=== PATIENT | male | born 1955 | race Caucasian/White ===

== ENCOUNTER 2016-09-14 08:03 | Inpatient (IN) | payer BC ==
[2016-08-25 11:25] VITALS: BMI 34.0
--- NOTE | 2016-08-25 11:59 | PAT Medication Instructions ---
Service Date Aug 25, 2016. Current Home Medication List Lisinopril (Zestril), 5 MG PO QAM Misc Natural Products (Osteo Bi-Flex Advanced Do), 2 TAB PO QPM Naproxen (Aleve), 220 MG PO PRN Medication Instructions For Your Scheduled Surgery - Hold the following medications 5 days prior to surgery: Misc Natural Products (Osteo Bi-Flex Advanced Do), 2 TAB PO QPM - Hold the following medications the morning of surgery: Lisinopril (Zestril), 5 MG PO QAM Naproxen (Aleve), 220 MG PO PRN (per surgeon instructions) If you have any questions please call us at [phone] or [phone] ( [place]) or [phone]
[2016-08-25 12:39] LABS: BASO % 0.4 %; BASO ABS # 0.03 K/uL (0-0.2); COMPLETE YES; IG% 0.2 %; LYMPH % 22.5 %; LYMPH ABS # 1.82 K/uL (1.2-3.4); MEAN CORPUSCULAR HEMOGLOBIN 29.8 pg (25-34); MEAN CORPUSCULAR HGB CONC 33.5 g/dl (32-36); MEAN PLATELET VOLUME 9.8 fL (7.4-10.4); MONO % 9.7 %; NEUT % 64.2 %; PLATELET COUNT 206 K/uL (130-400); RED BLOOD COUNT 5.17 M/uL (4.7-6.1); WHITE BLOOD COUNT 8.08 K/uL (4.8-10.8)
[2016-08-25 12:56] LABS: PARTIAL THROMBOPLASTIN RATIO 1.1; PROTHROMBIN TIME (PATIENT) 11.1 SECONDS (9.0-12.0)
[2016-08-25 13:17] LABS: URINE APPEARANCE CLEAR (CLEAR); URINE BILIRUBIN NEG (NEG); URINE COLOR YELLOW; URINE NITRITE NEG (NEG); URINE SPECIFIC GRAVITY 1.012 (1.000-1.030); UROBILINOGEN NEG (NEG)
[2016-08-25 13:27] LABS: MANUAL MICROSCOPIC REQUIRED? NO; REVIEW REQ? NO
[2016-08-25 13:34] LABS: ESTIMATED AVERAGE GLUCOSE 128 mg/dl; HA1C FLAG Normal (Normal)
[2016-08-25 15:56] LABS: POTASSIUM 4.2 mmol/L (3.5-5.1)
[2016-08-25 16:03] LABS: CALCIUM 9.2 mg/dl (8.5-10.1)
--- NOTE | 2016-08-28 08:07 | DIAGNOSTIC IMAGING REPORT ---
TWO VIEW CHEST CLINICAL HISTORY: Preoperative examination. FINDINGS: PA and lateral chest radiographs are obtained. No prior studies are available for comparison at the time of dictation. The cardiomediastinal silhouette is unremarkable. Scattered calcified granulomas are observed. The lungs and pleural spaces are otherwise clear. There is no pneumothorax. The bony thorax appears intact. Degenerative change is noted throughout the thoracic spine. IMPRESSION: No active disease in in the chest. Electronically signed by: Marques Buckley M.D. 08/28/2016 8:06 AM
--- NOTE | 2016-09-13 16:00 | HISTORY & PHYSICAL EXAMINATION ---
DATE OF ADMISSION: 09/14/2016 CHIEF COMPLAINT: Left knee pain. HISTORY OF PRESENT ILLNESS: The patient is a 61-year-old gentleman with known osteoarthritis about his bilateral knees, left worse than right. He is a truck technician by trade. He has had previous corticosteroid as well as viscosupplementation injections. He continues to have ongoing pain and disability and now desires to proceed with left total knee arthroplasty. PAST MEDICAL HISTORY: Hypertension, obesity, osteoarthritis. PAST SURGICAL HISTORY: None. MEDICATIONS: Lisinopril/HCTZ 10/12.5 half tablet daily. ALLERGIES: No known drug allergies. SOCIAL HISTORY AND REVIEW OF SYSTEMS: Noncontributory. PHYSICAL EXAMINATION: GENERAL: Well-nourished, well-developed, obese male who appears his stated age. HEAD, EYES, EARS, NOSE, AND THROAT: Normocephalic, atraumatic, extraocular movements intact, oropharynx pink and moist. NECK: Supple without adenopathy. LUNGS: Clear to auscultation bilaterally. HEART: Regular rate and rhythm. ABDOMEN: Soft, nontender, nondistended. EXTREMITIES: The upper extremity within normal limits. The left knee has a varus alignment. He complains primarily of medial compartment pain. He has mild crepitus with range of motion. His range of motion is from 0-120 degrees. X-RAYS: X-rays were reviewed. He has a varus aligned knee. He has bone on bone arthritis of the medial compartment with complete loss of joint space. There is moderate osteophyte formation about the medial joint line. He has moderate degenerative change about the patellofemoral joint as well. ASSESSMENT: Left knee degenerative joint disease. PLAN: Risks versus benefits were discussed. Consent was obtained. The patient's primary care physician is Dr. Aleida Maier from [facility]. Will proceed with left total knee arthroplasty upon preoperative workup and medical clearance.
[~2016-09-14] VITALS: Ht 185.4 cm; Wt 117.3 kg
[2016-09-14] VITALS (7 sets, daily range): BP systolic 115–141; BP diastolic 73–91; PULSE 62–85; TEMP 36.3–36.7; O2SAT 93–97; Ht 185.4 cm; Wt 117.3 kg
[~2016-09-14 08:03] MED LIST: ACETAMINOPHEN 500 MG TAB PO SCH; BUPIVACAINE 0.25% 30 ML VIAL ONE; BUPIVACAINE 0.5 % 5 MG/1 ML PF 10ML VIAL ONE; CEFAZOLIN 2000 MG/60 ML D5W 60 ML IV SCH; CeleBREX 200 MG CAP PO SCH; DEXAMETHASONE 4 MG TAB PO SCH; FAMOTIDINE 20 MG TAB PO SCH; GABAPENTIN 300 MG CAP PO SCH; LACTATED RINGER'S 1000ML 1,000 ML IV SCH; LACTATED RINGER'S 1000ML 500 ML IV ONE; LISI-729 PO; METOCLOPRAMIDE HCL 10 MG TAB PO SCH; MISCTAB78 PO; NAPR1TAB9 PO; ROPIVACAINE 5MG/ML 30 ML 150 MG, BUPIVACAINE/EPINEPHR 0.5% MPF 30 ML, KETOROLAC TROMETH... INFIL SCH
[2016-09-14] MEDS ORDERED: MIDAZOLAM HCL 1 MG/ML 2ML VIAL ONE ×3 (08:34→10:27)
[2016-09-14] MEDS ORDERED: LIDOCAINE HCL 2% 2 ML VIAL (20MG/ML) ONE (08:34)
[2016-09-14] MEDS ORDERED: FENTANYL CITRATE INJ 50 MCG/1 ML 2 ML VIAL ONE (08:34)
[2016-09-14] MEDS ORDERED: PROPOFOL IV EMULSION 10 MG/ML 20 ML VIAL IV ONE (08:34)
--- NOTE | 2016-09-14 08:46 | History & Physical Bridge Note ---
H&P Re-Evaluation Bridge Note: I have examined the patient, reviewed the History & Physical and in the interval since the performance of the History & Physical I have noted the following changes of clinical significance: No changes noted
[2016-09-14] MEDS ORDERED: ORTHO JOINT ANESTHETIC ONE (09:13)
[2016-09-14] MEDS: TRANEXAMIC ACID INJ 1,000 MG in SODIUM CHLORIDE 0.9% 100ML 100 ML IV SCH ×2 (09:32→14:15)
[2016-09-14] MEDS ORDERED: LACTATED RINGER'S 1000ML 1,000 ML IV PRN (09:50)
[2016-09-14] MEDS ORDERED: ONDANSETRON INJ 2 MG/ML 2 ML VIAL IV PRN ×2 (10:00→11:30)
[2016-09-14] MEDS ORDERED: FENTANYL CITRATE INJ 50 MCG/1 ML 2 ML VIAL IV PRN (10:00)
[2016-09-14] MEDS ORDERED: BACITRACIN 50000 UNIT VIAL IR ONE (10:56)
[2016-09-14] MEDS ORDERED: POVIDONE-IODINE OP SOLN 30 ML BTL TOP ONE (10:56)
--- NOTE | 2016-09-14 10:57 | [facility] Post Operative Brief Note ---
Immediate Operative Summary Operative Date Sep 14, 2016. Pre-Operative Diagnosis Left knee degenerative joint disease Post-Operative Diagnosis Same as Pre-op Procedure(s) Performed Left Total Knee Arthroplasty Cemented Surgeon Dr. Regino Benz Evp Chief Exploration Officer Surgeon(s) Mckay Gamez PA-C Estimated Blood Loss 20 ml Findings severe OA Specimens A. Left knee bone and tissue Complication(s) None Disposition Recovery Room / PACU
--- NOTE | 2016-09-14 11:19 | OPERATIVE REPORT ---
DATE OF OPERATION: 09/14/2016 PREOPERATIVE DIAGNOSIS: Osteoarthritis left knee. POSTOPERATIVE DIAGNOSIS: Osteoarthritis left knee. PROCEDURE: Left total knee arthroplasty. SURGEON: Dr. Benz. CORN SHUCKER: Mckay Gamez PA-C. ANESTHESIA: Spinal. COMPLICATIONS: None. OPERATION AND FINDINGS: Following induction of spinal anesthesia, the patient's left leg was prepped and draped in the usual sterile manner. Limb was exsanguinated with an Esmarch bandage and tourniquet was inflated to 350 mmHg. A longitudinal incision was made anteriorly. Subcutaneous tissue was sharply dissected. Electrocautery was used for hemostasis. Prepatellar bursa was incised and median parapatellar incision was performed. Patella was everted and the knee was flexed. Fat pad was removed to aid in visualization and the anterior and posterior cruciate ligaments were removed. The medial face of the tibia was cleared of soft tissue first with a Bovie and a Hernandez elevator. This tissue was retracted posteriorly using a blunt Hohmann. A Chris retractor was used to expose the synovium above on the anterior aspect of the femur and this was removed down to bone. The PSI guide was placed on the distal femur and two pins were placed anteriorly and kept in position and two additional pins were placed distally and removed. The distal femoral cutting block was placed in position and the distal femoral cut was used in the +0 setting. Next, the cutting block was removed and the femoral size 6 block was placed in the distal end of the femur. Care was taken to ensure appropriate external rotation and feeler gauge was used to ensure no notching would occur. The femoral block was centered on the distal femur and in the medial and lateral direction and was fixed using two bone screws. The gold pins were then removed. The oscillating saw was used to create the bone cuts and the distal femoral cutting block was removed and the reciprocating saw was used to further trim the femoral cuts as well as a deep in the area for the trochlear groove. Next, posterior condyle remnants were removed. Following this, a meniscal clamp and knife were utilized to remove the anterior portion of both medial and lateral meniscus. The proximal tibia PSI guide was placed into position and the proximal tibial cutting guide was screwed into position. The extra medullary alignment guide was utilized to ensure appropriate alignment. The proximal tibia was cut and the proximal tibial cutting block was removed and this bone fragment was removed. The appropriate guide was used to perform the notch cut on the distal femur and a lamina ammonia refrigeration worker and a cochlear knife were utilized to finish both medial and lateral meniscectomies to remove any remnants of the posterior or anterior cruciate ligaments. Following this, the distal femoral component was impacted into position and blunt Pham was used to sublux the tibia anteriorly. The proximal tibia was sized and a size 5 tibial tray was chosen as the size to be used. This was put into position and appropriate external rotation and a double check with extramedullary alignment guide was performed. The canal for the tibial stem was prepared first with a 17 mm drill and then the punch and a mallet and the trial tibial poly was placed. A tibial poly 9 was chosen the size to be used. It was brought to extension and the patella was prepared with the patellar reamer. A patella size 39 component was chosen the size to be used. The trial component was placed and knee was taken through a full range of motion and there was found to be no lateral subluxation of the tibia. No lateral release was required. The trials were all removed. The final components were obtained and assembled. Cement was mixed. The knee was thoroughly irrigated and the ortho mix was injected about the knee joint. The final components were cemented into position. After thoroughly suctioning and drying the bone ends, all excess cement was removed. The knee was held in extension while the cement hardened. The wound was irrigated and closed over a Hemovac drain. #1 Vicryl was used to close the extensor mechanism. Subcutaneous tissues closed using 0 Dexon. Skin was closed with tisha. Sterile dressing of Adaptic, 4 x 4's, sterile Webril, and Ganga was applied. The patient tolerated the procedure well. Due to the complex nature of the procedure, the entire surgery was performed with the operational assistance of Mckay Gamez PA-C. The assistant clinical director, under direct supervision, was involved in the actual performance of all aspects of the surgical procedure including hemostasis, tissue retraction and incision, instrument management, patient positioning, and wound closure. I attest to the content of the Intraoperative Record and any orders documented therein. Any exceptio ns are noted below.
[2016-09-14] MEDS ORDERED: METOCLOPRAMIDE HCL INJ 5 MG/ML 2 ML VIAL IV PRN (11:30)
[2016-09-14] MEDS ORDERED: TAMSULOSIN HCL 0.4 MG CAP PO PRN (11:30)
[2016-09-14] MEDS ORDERED: MAGNESIUM HYDROXIDE SUSP 30 ML UDC PO PRN (11:30)
[2016-09-14] MEDS ORDERED: MoRPHine SULFATE 2 MG/ML CARP IV PRN (11:30)
[2016-09-14] MEDS ORDERED: ALUMINUM/MAGNESIUM/SIMETH (MAALOX MAX) 30 ML UDC PO PRN (11:30)
[2016-09-14] MEDS ORDERED: ZOLPIDEM TARTRATE 5 MG TAB PO PRN (11:30)
--- NOTE | 2016-09-14 12:01 | DIAGNOSTIC IMAGING REPORT ---
LEFT KNEE 2 VIEWS History: Left total knee arthroplasty. Degenerative arthritis. Postop. FINDINGS: The patient is status post a left total knee arthroplasty. The hardware is intact. No fracture or dislocation. Skin tisha and surgical drains are in place. IMPRESSION: Left total knee arthroplasty. No evidence for hardware complication. Electronically signed by: Logan Garcia M.D. 09/14/2016 11:59 AM
[2016-09-14] MEDS ORDERED: MoRPHine SULFATE 4 MG/ML 1 ML CARP\\VIAL IV PRN (13:45)
[2016-09-14] MEDS ORDERED: MoRPHine SULFATE 10 MG/ML CARP/VIAL IV PRN (13:45)
[2016-09-14] MEDS: D5W AND 1/2NSS + 20MEQ KCL 1,000 ML IV SCH ×2 (14:05→23:32)
[2016-09-14] MEDS: KETOROLAC TROMETHAMINE 30 MG/ML VIAL IV. SCH ×2 (14:09→20:21)
--- NOTE | 2016-09-14 14:31 | Anesthesiology Progress Note ---
Anesthesia Post Op Note Date & Time Sep 14, 2016 at 14:30 Vital Signs Pain Intensity: 0.0 Vital Signs Past 12 Hours Date Time Temp Pulse Resp B/P Pulse Ox O2 Delivery O2 Flow Rate FiO2 09/14/16 14:20 81 16 128/89 96 Nasal Cannula 2.0 09/14/16 13:50 62 18 141/91 97 Nasal Cannula 2.0 09/14/16 13:20 96 Nasal Cannula 2.0 09/14/16 13:20 36.6 71 16 118/73 96 Nasal Cannula 2.0 09/14/16 13:20 Nasal Cannula 2.0 09/14/16 13:05 68 10 09/14/16 13:05 68 10 96 09/14/16 13:04 71 24 09/14/16 13:01 77 18 95 09/14/16 13:01 73 18 09/14/16 13:00 36.9 85 19 125/76 97 Nasal Cannula 2 09/14/16 12:59 125/76 09/14/16 12:56 68 19 97 09/14/16 12:56 65 19 09/14/16 12:53 102/76 09/14/16 12:51 73 21 09/14/16 12:51 71 21 96 09/14/16 12:49 108/79 09/14/16 12:46 66 16 09/14/16 12:46 66 16 98 09/14/16 12:43 122/75 09/14/16 12:41 72 11 98 09/14/16 12:41 73 11 09/14/16 12:39 109/79 09/14/16 12:36 65 12 96 09/14/16 12:36 65 12 09/14/16 12:33 115/78 09/14/16 12:31 60 14 99 09/14/16 12:31 61 14 09/14/16 12:30 71 24 09/14/16 12:30 71 24 100 09/14/16 12:29 118/77 09/14/16 12:25 72 19 09/14/16 12:25 71 19 100 09/14/16 12:24 110/76 09/14/16 12:20 77 20 09/14/16 12:20 73 20 99 09/14/16 12:19 72 18 09/14/16 12:19 72 18 122/81 99 09/14/16 12:14 70 15 09/14/16 12:14 70 15 111/73 98 09/14/16 12:13 70 16 105/60 100 Mask 10 09/14/16 12:09 73 11 99 09/14/16 12:09 68 11 09/14/16 12:08 118/74 09/14/16 12:07 72 21 97 09/14/16 12:07 72 21 09/14/16 12:04 107/68 09/14/16 12:02 67 14 09/14/16 12:02 68 14 94 09/14/16 11:59 109/76 09/14/16 11:57 70 13 09/14/16 11:57 71 13 96 09/14/16 11:52 72 14 99 09/14/16 11:52 68 14 09/14/16 11:47 66 10 100 09/14/16 11:47 66 10 09/14/16 11:44 107/70 09/14/16 11:40 36.2 79 16 108/64 100 Mask 10 09/14/16 11:32 36.2 81 16 109/69 100 Mask 10 09/14/16 08:40 36.7 79 18 128/86 96 Room Air Notes Mental Status: alert / awake / arousable, participated in evaluation Pt Amnestic to Procedure: Yes Nausea / Vomiting: adequately controlled Pain: adequately controlled Airway Patency, RR, SpO2: stable & adequate BP & HR: stable & adequate Hydration State: stable & adequate Neuraxial Anesthesia: was administered, sensory block is resolving Anesthetic Complications: no major complications apparent
[2016-09-14] MEDS: FERROUS GLUCONATE 324 MG TAB PO SCH (18:22)
[2016-09-14] MEDS: CEFAZOLIN IV 2,000 MG in DEXTROSE 5% 50ML 50 ML IV SCH (18:22)
[2016-09-14] MEDS: OXYCODONE HCL IR 5 MG TAB (IMMEDIATE RELEASE) PO PRN (18:29)
[2016-09-14] MEDS: DOCUSATE SODIUM 100 MG CAP PO SCH (21:07)
[2016-09-14] MEDS: OXYCODONE HCL 10 MG TABCR (OXYCONTIN) PO SCH (21:07)
[2016-09-14] MEDS: ASPIRIN 81 MG ECTAB PO SCH (21:07)
[2016-09-14] MEDS: ACETAMINOPHEN 500 MG TAB PO SCH (22:00)
[2016-09-15] VITALS (7 sets, daily range): BP systolic 110–144; BP diastolic 65–81; PULSE 56–68; TEMP 36.4–36.8; O2SAT 94–96
[2016-09-15] MEDS: KETOROLAC TROMETHAMINE 30 MG/ML VIAL IV. SCH ×2 (01:43→08:52)
[2016-09-15] MEDS: CEFAZOLIN IV 2,000 MG in DEXTROSE 5% 50ML 50 ML IV SCH (01:43)
[2016-09-15] MEDS: ACETAMINOPHEN 500 MG TAB PO SCH ×3 (05:44→21:36)
[2016-09-15 06:44] LABS: HEMATOCRIT 34.9 % (42-52); MEAN CELL VOLUME 88.8 fL (80-100); MEAN CORPUSCULAR HEMOGLOBIN 30.5 pg (25-34); MEAN CORPUSCULAR HGB CONC 34.4 g/dl (32-36); MEAN PLATELET VOLUME 10.2 fL (7.4-10.4); PLATELET COUNT 199 K/uL (130-400); RED BLOOD COUNT 3.93 M/uL (4.7-6.1); WHITE BLOOD COUNT 17.05 K/uL (4.8-10.8)
[2016-09-15 07:25] LABS: BUN/CREATININE RATIO 22.5 (10-20); CALCIUM 8.3 mg/dl (8.5-10.1); POTASSIUM 4.3 mmol/L (3.5-5.1)
[2016-09-15] MEDS ORDERED: DEXAMETHASONE INJ 10 MG in SYRINGE 0 ML IV SCH (07:30)
--- NOTE | 2016-09-15 07:46 | Orthopedic Progress Note ---
Orthopedic Progress Note Date of Service Sep 15, 2016. Subjective Post OP Day: 1 Reports: feeling well Objective N/V intact, dressing C/D/I (Hemovac d/c'd), toes mobile Date Time Temp Pulse Resp B/P Pulse Ox O2 Delivery O2 Flow Rate FiO2 09/15/16 03:44 36.5 64 16 111/70 96 Room Air 09/15/16 00:12 36.8 68 16 110/65 94 Room Air 09/14/16 23:30 Room Air 09/14/16 20:48 36.7 85 20 130/77 93 Room Air 09/14/16 16:32 36.4 76 20 127/74 96 Nasal Cannula 2.0 09/14/16 15:20 36.3 81 20 115/74 97 Nasal Cannula 2.0 09/14/16 15:05 Nasal Cannula 2.0 09/14/16 14:20 81 16 128/89 96 Nasal Cannula 2.0 09/14/16 13:50 62 18 141/91 97 Nasal Cannula 2.0 09/14/16 13:20 96 Nasal Cannula 2.0 09/14/16 13:20 36.6 71 16 118/73 96 Nasal Cannula 2.0 09/14/16 13:20 Nasal Cannula 2.0 09/14/16 13:05 68 10 09/14/16 13:05 68 10 96 09/14/16 13:04 71 24 09/14/16 13:01 77 18 95 09/14/16 13:01 73 18 09/14/16 13:00 36.9 85 19 125/76 97 Nasal Cannula 2 09/14/16 12:59 125/76 09/14/16 12:56 68 19 97 09/14/16 12:56 65 19 09/14/16 12:53 102/76 09/14/16 12:51 73 21 09/14/16 12:51 71 21 96 09/14/16 12:49 108/79 09/14/16 12:46 66 16 09/14/16 12:46 66 16 98 09/14/16 12:43 122/75 09/14/16 12:41 72 11 98 09/14/16 12:41 73 11 09/14/16 12:39 109/79 09/14/16 12:36 65 12 96 09/14/16 12:36 65 12 09/14/16 12:33 115/78 09/14/16 12:31 60 14 99 09/14/16 12:31 61 14 09/14/16 12:30 71 24 09/14/16 12:30 71 24 100 09/14/16 12:29 118/77 09/14/16 12:25 72 19 09/14/16 12:25 71 19 100 09/14/16 12:24 110/76 09/14/16 12:20 77 20 09/14/16 12:20 73 20 99 09/14/16 12:19 72 18 09/14/16 12:19 72 18 122/81 99 09/14/16 12:14 70 15 09/14/16 12:14 70 15 111/73 98 09/14/16 12:13 70 16 105/60 100 Mask 10 09/14/16 12:09 73 11 99 09/14/16 12:09 68 11 09/14/16 12:08 118/74 09/14/16 12:07 72 21 97 09/14/16 12:07 72 21 09/14/16 12:04 107/68 09/14/16 12:02 67 14 09/14/16 12:02 68 14 94 09/14/16 11:59 109/76 09/14/16 11:57 70 13 09/14/16 11:57 71 13 96 09/14/16 11:52 72 14 99 09/14/16 11:52 68 14 09/14/16 11:47 66 10 100 09/14/16 11:47 66 10 09/14/16 11:44 107/70 09/14/16 11:40 36.2 79 16 108/64 100 Mask 10 09/14/16 11:32 36.2 81 16 109/69 100 Mask 10 09/14/16 08:40 36.7 79 18 128/86 96 Room Air Laboratory Results 24 Hours: Test 09/15/16 05:35 Hematocrit 34.9 % Hemoglobin 12.0 g/dL Assessment & Plan Assessment: 61 yo male stable POD #1 s/p left TKA Plan: 1. Med management 2. DVT prophylaxis- ASA, TEDs, SCDs 3. PT/OT 4. D/C planning- home w/ HH
[2016-09-15] MEDS: FERROUS GLUCONATE 324 MG TAB PO SCH ×3 (08:52→17:51)
[2016-09-15] MEDS: ASPIRIN 81 MG ECTAB PO SCH ×2 (08:52→20:56)
[2016-09-15] MEDS: MULTIVITAMIN TAB PO SCH (08:53)
[2016-09-15] MEDS: PANTOprazole SOD 40 MG TAB PO SCH (08:53)
[2016-09-15] MEDS: DOCUSATE SODIUM 100 MG CAP PO SCH ×2 (08:53→20:56)
[2016-09-15] MEDS: LISINOPRIL 5 MG TAB PO SCH (08:54)
[2016-09-15] MEDS: OXYCODONE HCL 10 MG TABCR (OXYCONTIN) PO SCH ×2 (09:02→20:55)
--- NOTE | 2016-09-15 09:04 | Anesthesiology Progress Note ---
Anesthesia Post Op Note Date & Time Sep 15, 2016 at 09:02 Vital Signs Pain Intensity: 2.0 Vital Signs Past 12 Hours Date Time Temp Pulse Resp B/P Pulse Ox O2 Delivery O2 Flow Rate FiO2 09/15/16 07:54 36.4 64 16 132/78 95 Room Air 09/15/16 03:44 36.5 64 16 111/70 96 Room Air 09/15/16 00:12 36.8 68 16 110/65 94 Room Air 09/14/16 23:30 Room Air Notes Mental Status: alert / awake / arousable, participated in evaluation Pt Amnestic to Procedure: Yes Nausea / Vomiting: adequately controlled Pain: adequately controlled Airway Patency, RR, SpO2: stable & adequate BP & HR: stable & adequate Hydration State: stable & adequate Anesthetic Complications: no major complications apparent
--- NOTE | 2016-09-15 17:13 | Discharge Instructions ---
Discharge Instructions Admission Reason for Admission: Left Knee Osteoarthritis Discharge Discharge Diagnosis / Problem: left total knee replacement Discharge Goals Goal(s): Decrease discomfort, Improve function, Increase independence Activity Recommendations Activity Limitations: as noted below Weightbearing Status: Left weightbearing (as tolerated) . Instructions / Follow-Up Instructions / Follow-Up ACTIVITY RECOMMENDATIONS: SELF CARE INSTRUCTIONS AFTER TOTAL KNEE REPLACEMENT A. You may need to continue a physical therapy program after discharge from the hospital. There are several options available to you. Your doctor will assist you in selecting the best one for you. 1. An out-patient facility 2 to 3 times a week for therapy or home therapy. 2. Continue working on all exercises taught to you in the hospital. Your goals should be to increase bending of your knee to 90 degrees and beyond and to fully straighten your knee. B. You may progress at your own pace from walking with a walker or crutches to a cane; then to no assistive devices. C. Make walking a part of your daily routine. Be up as much as comfortable with rest periods throughout the day. Rest with leg elevation is very important. Use the ice wrap frequently for the first 3-4 weeks. D. There are no restrictions on activities. You may ride in a car, shop, participate in duco polisher and all social activities. E. Wear the long elastic stockings (JOSEF hose) 20 hours a day for 2 weeks after surgery. They can be removed several times a day for laundering and for a bath. F. You may shower, no tub baths until cleared by your doctor. SPECIAL CARE INSTRUCTIONS: VERY IMPORTANT TO READ AND REVIEW A. There are a few signs you need to watch for after you are home. Call [facility] if you notice any of the followin. Increased severe knee pain. Some pain is expected especially when you exercise. 2. Increased swelling in your leg or knee; pain or swelling of the calf muscle in either lower leg. 3. Any fluid drainage from the incision. 4. Shortness of breath or chest pain. B. Please call [facility] at if you have any concerns or questions about your operation or recovery. The doctor or his nurse will return your call promptly. C. You must take antibiotics before dental work, bladder, bowel or other surgery. Your doctor will provide you with a permanent care to carry describing this precaution. IMPORTANT: * REMEMBER TO TAKE ASPIRIN, 81 MG, TWICE DAILY FOR 4 WEEKS UNLESS OTHERWISE DIRECTED. THIS IS YOUR BLOOD THINNER. * HIGH RISK PATIENTS MAY BE PRESCRIBED A STRONGER BLOOD THINNER. THIS WILL BE PROVIDED AT DISCHARGE. * CALL IF INCREASED PAIN, REDNESS, DRAINAGE OR FEVER GREATER THAT 101. * WEAR JOSEF HOSE 20 HOURS PER DAY FOR 2 WEEKS. * YOU MAY HAVE A LARGE BAND-AID LIKE DRESSING (SILVERON). THIS WILL REMAIN ON YOUR INCISION FOR 7 DAYS, THEN CAN BE REMOVED. IF INCISION IS LEAKING THROUGH DRESSING, CALL THE OFFICE . FOLLOW UP VISIT: If appointment is not already scheduled: Please call [facility] to make a follow-up appointment for 2 weeks after your surgery at . Current Hospital Diet Patient's current hospital diet: Regular Diet Discharge Diet Recommended Diet: Regular Diet Procedures Procedures Performed: Left Total Knee Arthroplasty Cemented Pending Studies Studies pending at discharge: no Laboratory Results Hemoglobin A1c Test 08/25/16 12:06 Range/Units Estimated Average Glucose 128 mg/dl Hemoglobin A1c 6.1 H 4.5-5.6 % Medical Emergencies . Who to Call and When: Medical Emergencies: If at any time you feel your situation is an emergency, please call [phone] immediately. . Non-Emergent Contact Non-Emergency issues call your: Primary Care Provider, Surgeon . "Provider Documentation" section prepared by Jorge Dsouza. VTE Core Measure Inpt VTE Proph given/why not?: Other Anticoagulation (ASA 81mg po bid x 1 month ), T.E.D. Stockings, SCD's
[2016-09-15] MEDS: CeleBREX 200 MG CAP PO SCH (20:56)
[2016-09-16] MEDS: ACETAMINOPHEN 500 MG TAB PO SCH (05:50)
[2016-09-16 06:35] VITALS: BP 117/74; PULSE 63; TEMP 36.6; O2SAT 96
--- NOTE | 2016-09-16 08:01 | Orthopedic Progress Note ---
Orthopedic Progress Note Date of Service Sep 16, 2016. Subjective Post OP Day: 2 Reports: feeling well, pain controlled w PO medications, Denies: SOB, calf pain , chest pain, complaints, light headedness, nausea / vomiting Objective calves soft nontender, N/V intact, capillary refill less than 2 sec., dressing C /D/I, A&O x3, toes mobile Date Time Temp Pulse Resp B/P Pulse Ox O2 Delivery O2 Flow Rate FiO2 09/16/16 06:35 36.6 63 16 117/74 96 Room Air 09/15/16 23:50 36.4 56 16 127/75 95 Room Air 09/15/16 23:15 Room Air 09/15/16 15:22 36.4 68 80 144/81 96 Room Air 09/15/16 15:15 Room Air 09/15/16 12:03 36.5 68 24 132/76 96 Room Air 09/15/16 11:04 95 Room Air Assessment & Plan Assessment: 61 yo male stable POD #2 s/p left TKA Plan: 1. Med management 2. DVT prophylaxis- ASA, TEDs, SCDs 3. PT/OT 4. D/C planning- home w/ HH Discharge Planning Discharge Planning: home with home health DVT Prophylaxis: TEDs, SCDs Therapy: Physical Therapy
[2016-09-16 08:06] VITALS: BP 125/70; PULSE 68; TEMP 36.9; O2SAT 94
[2016-09-16 08:11] VITALS: O2SAT 94
[2016-09-16] MEDS ORDERED: ONDA8TAB6 PO (08:12)
[2016-09-16] MEDS ORDERED: ACET-1138 PO (08:12)
[2016-09-16] MEDS ORDERED: ASPEC81 PO (08:12)
[2016-09-16] MEDS ORDERED: CLB200 PO (08:12)
[2016-09-16] MEDS ORDERED: RXC5 PO (08:12)
[2016-09-16] MEDS ORDERED: OXYSR10 PO (08:12)
[2016-09-16] MEDS ORDERED: CLC100 PO (08:12)
[2016-09-16 08:47] VITALS: BP 125/70; PULSE 68; TEMP 36.9; O2SAT 94
[2016-09-16] MEDS: OXYCODONE HCL 10 MG TABCR (OXYCONTIN) PO SCH (09:57)
[2016-09-16] MEDS: ASPIRIN 81 MG ECTAB PO SCH (09:58)
[2016-09-16] MEDS: OXYCODONE HCL IR 5 MG TAB (IMMEDIATE RELEASE) PO PRN (09:58)
[2016-09-16] MEDS: FERROUS GLUCONATE 324 MG TAB PO SCH (09:58)
[2016-09-16] MEDS: CeleBREX 200 MG CAP PO SCH (09:59)
[2016-09-16] MEDS: LISINOPRIL 5 MG TAB PO SCH (09:59)
[2016-09-16] MEDS: DOCUSATE SODIUM 100 MG CAP PO SCH (09:59)
[2016-09-16] MEDS: PANTOprazole SOD 40 MG TAB PO SCH (09:59)
[2016-09-16] MEDS: MULTIVITAMIN TAB PO SCH (10:00)
--- NOTE | 2016-09-22 08:05 | DISCHARGE SUMMARY ---
CHIEF COMPLAINT: Left knee pain. Please see complete history and physical examination. HOSPITAL COURSE: The patient underwent left total knee arthroplasty without complication. He tolerated the procedure well and was discharged to recovery room in stable condition. His postoperative course was relatively uneventful. His postoperative pain was reasonably well controlled with a combination of spinal anesthesia, intraoperative joint injection, IV, and oral pain medications. He was started on aspirin for DVT prophylaxis. He also utilized JOSEF stockings and SCDs for additional prophylaxis. His H\T\H was stable and did not require transfusion. His surgical drain was discontinued by postoperative day 2, surgical dressing will remain in place for approximately 7 days postoperative. He tolerated postoperative physical therapy reasonably well as he was bending his knee and ambulating appropriately. He was discharged home on postoperative day 2. He will continue his physical therapy at home. He will continue his aspirin for DVT prophylaxis and follow up in our office in approximately 10-14 days for his initial postop evaluation.
== END 2016-09-16 11:31 | disposition home or self-care (01) | DRG 470 ==
LOC: ENRESERVDT → ENRESERVTM → C.ACU 08:03 → C.3E 11:35
PROC: 0SRD0J9 Replacement of Left Knee Joint with Synthetic Substitute, Cemented, Open Approach (ICD-10-PCS; principal; 2016-09-14 10:15)
DX: M17.12 Unilateral primary osteoarthritis, left knee (principal); I10 Essential (primary) hypertension; E66.9 Obesity, unspecified; Z68.34 Body mass index [BMI] 34.0-34.9, adult

== ENCOUNTER 2017-08-01 08:20 | Inpatient (IN) | payer BC ==
[2017-07-26 12:06] VITALS: BMI 33.0
--- NOTE | 2017-07-31 17:07 | HISTORY & PHYSICAL EXAMINATION ---
DATE OF ADMISSION: 08/01/2017 CHIEF COMPLAINT: Right knee pain. HISTORY OF PRESENT ILLNESS: The patient is a 61-year-old male with known osteoarthritis about his right knee. He had a successful left total knee previously with good results. He continues to have ongoing pain and disability with activities of daily living. He has pain with prolonged weightbearing and standing activities. He has difficulty with any kneeling, bending, or squatting activities. Due to ongoing pain and disability, he now desires to proceed with right total knee arthroplasty as well. PAST MEDICAL HISTORY: Hypertension and obesity. PAST SURGICAL HISTORY: Left knee replacement as above. MEDICATIONS: Lisinopril daily. ALLERGIES: No known drug allergies. SOCIAL HISTORY AND REVIEW OF SYSTEMS: Noncontributory. PHYSICAL EXAMINATION: GENERAL: Well-nourished and well-developed, obese male who appears his stated age. HEENT: Normocephalic and atraumatic. Extraocular movements intact. Oropharynx is pink and moist. NECK: Supple without adenopathy. LUNGS: Clear to auscultation bilaterally. HEART: Regular rate and rhythm. ABDOMEN: Soft, nontender, nondistended, and obese. EXTREMITIES: The upper extremities are within normal limits. The right knee has a slight varus alignment. He complains primarily of medial compartment pain. His range of motion is from 0-120 degrees. X-RAYS: X-rays were reviewed. He has [id number] arthritis of the medial compartment. The knee is varus aligned. He has osteophytes about the medial, lateral, and patellofemoral joints. ASSESSMENT: Right knee degenerative joint disease. PLAN: Risks versus benefits were discussed. Consent was obtained. The patient's primary care physician is Dr. Aleida Maier. We will proceed with right total knee as indicated.
[~2017-08-01] VITALS: Ht 188 cm; Wt 118.1 kg
[2017-08-01] VITALS (9 sets, daily range): BP systolic 110–170; BP diastolic 73–94; PULSE 65–93; TEMP 36.4–37; O2SAT 92–97; Ht 188 cm; Wt 118.1 kg
[2017-08-01] MEDS: TRANEXAMIC ACID INJ 1,000 MG in SYRINGE 0 ML IV SCH ×2 (06:30→11:21)
[~2017-08-01 08:20] MED LIST changes: -BUPIVACAINE 0.25% 30 ML VIAL ONE; -CEFAZOLIN 2000 MG/60 ML D5W 60 ML IV SCH; +CEFAZOLIN 2000MG IV PUSH 10 ML IV SCH; -LACTATED RINGER'S 1000ML 500 ML IV ONE; +LACTATED RINGER'S 1000ML 500 ML IV SCH; +LACTATED RINGER'S 1000ML IV SCH; -NAPR1TAB9 PO; +ROPIVACAINE 5MG/ML 30 ML 150 MG, BUPIVACAINE 0.5% MPF INJ 30 ML, EpINEphrine HCL INJ 0.... INFIL SCH; -ROPIVACAINE 5MG/ML 30 ML 150 MG, BUPIVACAINE/EPINEPHR 0.5% MPF 30 ML, KETOROLAC TROMETH... INFIL SCH
[2017-08-01] MEDS ORDERED: MIDAZOLAM HCL 1 MG/ML 2ML VIAL ONE (09:51)
[2017-08-01] MEDS ORDERED: PROPOFOL IV EMULSION 10 MG/ML 20 ML VIAL IV ONE ×2 (09:52→11:57)
[2017-08-01] MEDS ORDERED: LIDOCAINE HCL 2% 2 ML VIAL (20MG/ML) ONE (09:52)
[2017-08-01] MEDS ORDERED: FENTANYL CITRATE INJ 50 MCG/1 ML 2 ML VIAL ONE (09:52)
[2017-08-01] MEDS ORDERED: ORTHO JOINT ANESTHETIC ONE (10:58)
[2017-08-01] MEDS ORDERED: POVIDONE-IODINE OP SOLN 30 ML BTL ONE (10:58)
[2017-08-01] MEDS ORDERED: BACITRACIN 50000 UNIT VIAL ONE (10:59)
[2017-08-01] MEDS ORDERED: ONDANSETRON INJ 2 MG/ML 2 ML VIAL ONE (12:01)
[2017-08-01] MEDS ORDERED: DEXAMETHASONE SOD INJ 4 MG/ML VIAL ONE (12:01)
[2017-08-01] MEDS ORDERED: FENTANYL CITRATE INJ 50 MCG/1 ML 2 ML VIAL IV PRN (12:15)
[2017-08-01] MEDS ORDERED: EpHEDrine SULFATE INJ 50 MG/ML AMP IV PRN (12:15)
[2017-08-01] MEDS ORDERED: ONDANSETRON INJ 2 MG/ML 2 ML VIAL IV PRN ×2 (12:15→12:45)
[2017-08-01] MEDS ORDERED: ATROPINE SULFATE 0.1 MG/ML 5ML SYR IV PRN (12:15)
--- NOTE | 2017-08-01 12:30 | [facility] Post Operative Brief Note ---
Immediate Operative Summary Operative Date Aug 01, 2017. Pre-Operative Diagnosis Right Knee Degenerative Joint Disease Post-Operative Diagnosis Right Knee Degenerative Joint Disease Procedure(s) Performed Right Total Knee Arthroplasty Surgeon Dr. Benz Die Grinder Surgeon(s) BASSEM Larios Estimated Blood Loss 10 ml Findings oa Specimens A. Right Knee Bone and Tissue Complication(s) None Disposition Recovery Room / PACU
--- NOTE | 2017-08-01 12:44 | OPERATIVE REPORT ---
DATE OF OPERATION: 08/01/2017 PREOPERATIVE DIAGNOSIS: Osteoarthritis, right knee. POSTOPERATIVE DIAGNOSIS: Osteoarthritis, right knee. PROCEDURE: Right total knee arthroplasty. SURGEON: Dr. Benz. TOP DISTRIBUTION EXECUTIVE: BASSEM Larios ANESTHESIA: Spinal. COMPLICATIONS: None. IMPLANTS USED: Femoral size 5, tibia size 5, tibial poly 11, and patella size 39. OPERATION AND FINDINGS: Following induction of spinal anesthesia, the patient's right leg was prepped and draped in the usual sterile manner. Limb was exsanguinated with an Esmarch bandage and tourniquet was inflated to 350 mmHg. A longitudinal incision was made anteriorly. Subcutaneous tissue was sharply dissected. Electrocautery was used for hemostasis. Prepatellar bursa was incised and median parapatellar incision was performed. Patella was everted and the knee was flexed. Fat pad was removed to aid in visualization and the anterior and posterior cruciate ligaments were removed. The medial face of the tibia was cleared of soft tissue first with a Bovie and a Hernandez elevator. This tissue was retracted posteriorly using a blunt Hohmann. A Chris retractor was used to expose the synovium above on the anterior aspect of the femur and this was removed down to bone. The PSI guide was placed on the distal femur and two pins were placed anteriorly and kept in position and two additional pins were placed distally and removed. The distal femoral cutting block was placed in position and the distal femoral cut was used in the +0 setting. Next, the cutting block was removed and the femoral 5 block was placed in the distal end of the femur. Care was taken to ensure appropriate external rotation and feeler gauge was used to ensure no notching would occur. The femoral block was centered on the distal femur and in the medial and lateral direction and was fixed using two bone screws. The gold pins were then removed. The oscillating saw was used to create the bone cuts and the distal femoral cutting block was removed and the reciprocating saw was used to further trim the femoral cuts as well as a deep in the area for the trochlear groove. Next, posterior condyle remnants were removed. Following this, a meniscal clamp and knife were utilized to remove the anterior portion of both medial and lateral meniscus. The proximal tibia PSI guide was placed into position and the proximal tibial cutting guide was screwed into position. The extra medullary alignment guide was utilized to ensure appropriate alignment. The proximal tibia was cut and the proximal tibial cutting block was removed and this bone fragment was removed. The appropriate guide was used to perform the notch cut on the distal femur and a lamina placement director and a cochlear knife were utilized to finish both medial and lateral meniscectomies to remove any remnants of the posterior or anterior cruciate ligaments. Following this, the distal femoral component was impacted into position and blunt Pham was used to sublux the tibia anteriorly. The proximal tibia was sized and a 5 tibial tray was chosen as the size to be used. This was put into position and appropriate external rotation and a double check with extramedullary alignment guide was performed. The canal for the tibial stem was prepared first with a 17 mm drill and then the punch and a mallet and the trial tibial poly was placed. An 11 was chosen the size to be used. It was brought to extension and the patella was prepared with the patellar reamer. A 39 component was chosen the size to be used. The trial component was placed and knee was taken through a full range of motion and there was found to be no lateral subluxation of the tibia. No lateral release was required. The trials were all removed. The final components were obtained and assembled. Cement was mixed. The knee was thoroughly irrigated and the ortho mix was injected about the knee joint. The final components were cemented into position. After thoroughly suctioning and drying the bone ends, all excess cement was removed. The knee was held in extension while the cement hardened. The wound was irrigated and closed over a Hemovac drain. #1 Vicryl was used to close the extensor mechanism. Subcutaneous tissues closed using 0 Dexon. Skin was closed with tisha. Sterile dressing of Adaptic, 4 x 4's, sterile Webril, and Ganga was applied. The patient tolerated the procedure well. Due to the complex nature of the procedure, the entire surgery was performed with the operational assistance of BASSEM Larios. The general office assistant, under direct supervision, was involved in the actual performance of all aspects of the surgical procedure including hemostasis, tissue retraction and incision, instrument management, patient positioning, and wound closure. DISPOSITION: Recovery room, stable. I attest to the content of the Intraoperative Record and any orders documented therein. Any exception s are noted below.
[2017-08-01] MEDS ORDERED: MoRPHine SULFATE 4 MG/ML 1 ML CARP\\VIAL IV PRN (12:45)
[2017-08-01] MEDS ORDERED: ZOLPIDEM TARTRATE 5 MG TAB PO PRN (12:45)
[2017-08-01] MEDS ORDERED: CEFAZOLIN IV 1,000 MG in DEXTROSE 5% 50ML 50 ML IV SCH (12:45)
[2017-08-01] MEDS ORDERED: METOCLOPRAMIDE HCL INJ 5 MG/ML 2 ML VIAL IV PRN (12:45)
[2017-08-01] MEDS ORDERED: SOD PHOSPHATE/SOD BIPHOSPHATE ENEMA 132 ML BTL PR PRN (12:45)
[2017-08-01] MEDS ORDERED: BISACODYL 10 MG SUPP PR PRN (12:45)
[2017-08-01] MEDS ORDERED: MAGNESIUM HYDROXIDE SUSP 30 ML UDC PO PRN (12:45)
[2017-08-01] MEDS ORDERED: DiphenhydrAMINE HCL 50 MG/ML VIAL IV PRN (12:45)
[2017-08-01] MEDS ORDERED: TAMSULOSIN HCL 0.4 MG CAP PO PRN (12:45)
[2017-08-01] MEDS ORDERED: ACETAMINOPHEN 325 MG TAB PO PRN (12:45)
[2017-08-01] MEDS ORDERED: TRAMADOL HCL 50 MG TAB PO PRN (13:15)
--- NOTE | 2017-08-01 14:09 | DIAGNOSTIC IMAGING REPORT ---
R KNEE 1 OR 2 VIEWS ROUTINE CLINICAL HISTORY: AP/LATERAL IN PACU RIGHT KNEE postoperative evaluation COMPARISON: None. DISCUSSION: Evidence for a total right knee arthroplasty. Good contact between prosthetic and underlying bone. AP projection suggests a linear lucency central shaft of the proximal tibia. This is not well seen on lateral projection and may represent a nutrient canal and overlap artifact with skin shadow. Surgical drains are in position. Expected soft tissue postoperative change IMPRESSION: Anatomic alignment status post total right knee arthroplasty. The above report was generated using voice recognition software. It may contain grammatical, syntax or spelling errors. Electronically signed by: Jorge Barros M.D. 08/01/2017 2:08 PM Dictated Date/Time: 08/01/2017 2:06 PM
--- NOTE | 2017-08-01 14:31 | Anesthesiology Progress Note ---
Anesthesia Post Op Note Date & Time Aug 01, 2017 at 14:31 Vital Signs Pain Intensity: 0 Vital Signs Past 12 Hours Date Time Temp Pulse Resp B/P (MAP) Pulse Ox O2 Delivery O2 Flow Rate FiO2 08/01/17 14:17 76 20 08/01/17 14:17 77 20 94 08/01/17 14:16 107/76 08/01/17 14:12 63 15 95 08/01/17 14:12 64 15 08/01/17 14:11 126/59 08/01/17 14:07 67 33 08/01/17 14:07 63 33 97 08/01/17 14:06 131/75 08/01/17 14:03 36.7 66 16 131/75 (85) 97 Nasal Cannula 2 08/01/17 14:02 70 17 08/01/17 14:02 70 17 97 08/01/17 14:01 109/78 08/01/17 13:58 71 29 97 08/01/17 13:58 76 29 08/01/17 13:56 115/72 08/01/17 13:53 70 18 08/01/17 13:53 80 18 96 08/01/17 13:52 67 16 08/01/17 13:52 66 16 96 08/01/17 13:51 110/76 08/01/17 13:47 62 17 08/01/17 13:47 61 17 95 08/01/17 13:46 109/70 08/01/17 13:42 65 13 08/01/17 13:42 67 13 95 08/01/17 13:41 114/76 08/01/17 13:37 73 15 96 08/01/17 13:37 74 15 08/01/17 13:36 129/76 08/01/17 13:32 66 21 08/01/17 13:32 64 21 99 08/01/17 13:31 107/70 08/01/17 13:27 68 25 08/01/17 13:27 68 25 99 08/01/17 13:26 110/70 08/01/17 13:24 65 17 99 08/01/17 13:24 65 17 08/01/17 13:21 117/68 08/01/17 13:19 64 21 08/01/17 13:19 64 21 100 08/01/17 13:16 111/68 08/01/17 13:14 67 16 98 08/01/17 13:14 73 16 08/01/17 13:10 116/70 08/01/17 13:09 68 15 08/01/17 13:09 36.2 99 20 116/70 (80) 99 Oxymask 10 08/01/17 13:09 67 15 99 08/01/17 08:36 36.6 77 20 170/94 96 Room Air Notes Mental Status: alert / awake / arousable, participated in evaluation Pt Amnestic to Procedure: Yes Nausea / Vomiting: adequately controlled Pain: adequately controlled Airway Patency, RR, SpO2: stable & adequate BP & HR: stable & adequate Hydration State: stable & adequate Neuraxial Anesthesia: was administered, sensory block is resolving Anesthetic Complications: no major complications apparent
[2017-08-01] MEDS ORDERED: D5W AND 1/2NSS + 20MEQ KCL 1,000 ML IV SCH (15:00)
[2017-08-01] MEDS: KETOROLAC TROMETHAMINE 30 MG/ML VIAL IV. SCH ×2 (15:41→21:56)
[2017-08-01] MEDS: SODIUM CHLOR 0.45% + 20MEQ KCL 1,000 ML IV SCH (15:51)
[2017-08-01] MEDS: FERROUS GLUCONATE 324 MG TAB PO SCH (18:06)
[2017-08-01] MEDS ORDERED: TRANEXAMIC ACID INJ 1,000 MG in SODIUM CHLORIDE 0.9% 100ML 100 ML IV SCH (20:00)
[2017-08-01] MEDS: CEFAZOLIN IV 2,000 MG in SYRINGE 0 ML IV SCH (20:33)
[2017-08-01] MEDS: DOCUSATE SODIUM 100 MG CAP PO SCH (20:35)
[2017-08-01] MEDS: ASPIRIN 81 MG ECTAB PO SCH (20:36)
[2017-08-01] MEDS: SENNA 8.6 MG TAB PO SCH (20:36)
[2017-08-01] MEDS: OXYCODONE HCL 10 MG TABCR (OXYCONTIN) PO SCH (20:44)
[2017-08-01] MEDS: ACETAMINOPHEN 500 MG TAB PO SCH (21:56)
[2017-08-02] MEDS: SODIUM CHLOR 0.45% + 20MEQ KCL 1,000 ML IV SCH (02:25)
[2017-08-02] MEDS: CEFAZOLIN IV 2,000 MG in SYRINGE 0 ML IV SCH (03:43)
[2017-08-02] MEDS: KETOROLAC TROMETHAMINE 30 MG/ML VIAL IV. SCH ×2 (03:43→10:09)
[2017-08-02 04:00] VITALS: BP 104/67; PULSE 69; TEMP 36.5; O2SAT 94
[2017-08-02] MEDS: ACETAMINOPHEN 500 MG TAB PO SCH ×3 (05:43→21:22)
[2017-08-02 05:51] LABS: HEMATOCRIT 37.7 % (42-52); MEAN CORPUSCULAR HEMOGLOBIN 29.8 pg (25-34); MEAN CORPUSCULAR HGB CONC 33.2 g/dl (32-36); MEAN PLATELET VOLUME 9.9 fL (7.4-10.4); PLATELET COUNT 176 K/uL (130-400); RED BLOOD COUNT 4.19 M/uL (4.7-6.1); WHITE BLOOD COUNT 18.42 K/uL (4.8-10.8)
[2017-08-02 06:30] LABS: BUN/CREATININE RATIO 21.5 (10-20); CALCIUM 8.5 mg/dl (8.5-10.1); CREATININE 1.1 mg/dl (0.60-1.40); POTASSIUM 4.4 mmol/L (3.5-5.1)
[2017-08-02 07:13] VITALS: BP 120/70; PULSE 63; TEMP 36.4; O2SAT 97
--- NOTE | 2017-08-02 07:48 | Orthopedic Progress Note ---
Orthopedic Progress Note Date of Service Aug 02, 2017. Subjective Post OP Day: 1 Reports: feeling well, pain controlled w PO medications, Denies: complaints, chest pain, SOB, nausea / vomiting, light headedness, calf pain, using PALLIATIVE MEDICINE PHYSICIAN Objective calves soft nontender, N/V intact, capillary refill less than 2 sec., dressing C /D/I, A&O x3, toes mobile Date Time Temp Pulse Resp B/P (MAP) Pulse Ox O2 Delivery O2 Flow Rate FiO2 08/02/17 07:13 36.4 63 16 120/70 (87) 97 Room Air 08/02/17 04:00 36.5 69 16 104/67 (79) 94 Room Air 08/01/17 23:10 36.9 87 18 110/73 (85) 93 Room Air 08/01/17 19:40 36.5 93 16 114/75 (88) 93 Room Air 08/01/17 19:15 Room Air 08/01/17 17:25 37.0 83 17 131/82 (98) 92 Nasal Cannula 1.0 08/01/17 16:29 36.5 83 17 128/75 (92) 93 Nasal Cannula 1.0 08/01/17 16:05 95 Nasal Cannula 2.0 08/01/17 15:30 36.4 73 17 124/79 (94) 94 Nasal Cannula 1.0 08/01/17 15:00 36.4 82 18 124/76 (92) 97 Nasal Cannula 1.0 08/01/17 14:25 95 Nasal Cannula 2.0 08/01/17 14:25 36.8 65 16 149/90 (109) 95 Nasal Cannula 2.0 08/01/17 14:17 76 20 08/01/17 14:17 77 20 94 08/01/17 14:16 107/76 08/01/17 14:12 63 15 95 08/01/17 14:12 64 15 08/01/17 14:11 126/59 08/01/17 14:07 67 33 08/01/17 14:07 63 33 97 08/01/17 14:06 131/75 08/01/17 14:03 36.7 66 16 131/75 (85) 97 Nasal Cannula 2 08/01/17 14:02 70 17 08/01/17 14:02 70 17 97 08/01/17 14:01 109/78 08/01/17 13:58 71 29 97 08/01/17 13:58 76 29 08/01/17 13:56 115/72 08/01/17 13:53 70 18 08/01/17 13:53 80 18 96 08/01/17 13:52 67 16 08/01/17 13:52 66 16 96 08/01/17 13:51 110/76 08/01/17 13:47 62 17 08/01/17 13:47 61 17 95 08/01/17 13:46 109/70 08/01/17 13:42 65 13 08/01/17 13:42 67 13 95 08/01/17 13:41 114/76 08/01/17 13:37 73 15 96 08/01/17 13:37 74 15 08/01/17 13:36 129/76 08/01/17 13:32 66 21 08/01/17 13:32 64 21 99 08/01/17 13:31 107/70 08/01/17 13:27 68 25 08/01/17 13:27 68 25 99 08/01/17 13:26 110/70 08/01/17 13:24 65 17 99 08/01/17 13:24 65 17 08/01/17 13:21 117/68 08/01/17 13:19 64 21 08/01/17 13:19 64 21 100 08/01/17 13:16 111/68 08/01/17 13:14 67 16 98 08/01/17 13:14 73 16 08/01/17 13:10 116/70 08/01/17 13:09 68 15 08/01/17 13:09 36.2 99 20 116/70 (80) 99 Oxymask 10 08/01/17 13:09 67 15 99 08/01/17 08:36 36.6 77 20 170/94 96 Room Air Laboratory Results 24 Hours: Test 08/02/17 05:12 Hematocrit 37.7 % Hemoglobin 12.5 g/dL Assessment & Plan Assessment: POD #1 s/p Right total knee arthroplasty. -pt/ot -dvt proph with francisco javier/scd/asa -plan for d/c home with HHPT when stable, likely Sunday -zipline skin closure Discharge Planning Discharge Planning: home with home health DVT Prophylaxis: TEDs, SCDs, ASA Therapy: Physical Therapy
--- NOTE | 2017-08-02 07:51 | Discharge Instructions ---
Discharge Instructions Date of Service Aug 02, 2017. Admission Reason for Admission: Right Knee Osteoarthritis Discharge Discharge Diagnosis / Problem: Right Total Knee Replacement Discharge Goals Goal(s): Decrease discomfort, Improve function, Increase independence Activity Recommendations Activity Limitations: as noted below Weightbearing Status: Right weightbearing (as tolerated) . Instructions / Follow-Up Instructions / Follow-Up ACTIVITY RECOMMENDATIONS: SELF CARE INSTRUCTIONS AFTER TOTAL KNEE REPLACEMENT A. You may need to continue a physical therapy program after discharge from the hospital. There are several options available to you. Your doctor will assist you in selecting the best one for you. 1. An out-patient facility 2 to 3 times a week for therapy or home therapy. 2. Continue working on all exercises taught to you in the hospital. Your goals should be to increase bending of your knee to 90 degrees and beyond and to fully straighten your knee. B. You may progress at your own pace from walking with a walker or crutches to a cane; then to no assistive devices. C. Make walking a part of your daily routine. Be up as much as comfortable with rest periods throughout the day. Rest with leg elevation is very important. Use the ice wrap frequently for the first 3-4 weeks. D. There are no restrictions on activities. You may ride in a car, shop, participate in intermission coordinator and all social activities. E. Wear the long elastic stockings (JOSEF hose) 20 hours a day for 2 weeks after surgery. They can be removed several times a day for laundering and for a bath. F. You may shower, no tub baths until cleared by your doctor. SPECIAL CARE INSTRUCTIONS: VERY IMPORTANT TO READ AND REVIEW A. There are a few signs you need to watch for after you are home. Call [facility] if you notice any of the followin. Increased severe knee pain. Some pain is expected especially when you exercise. 2. Increased swelling in your leg or knee; pain or swelling of the calf muscle in either lower leg. 3. Any fluid drainage from the incision. 4. Shortness of breath or chest pain. B. Please call [facility] at if you have any concerns or questions about your operation or recovery. The doctor or his nurse will return your call promptly. C. You must take antibiotics before dental work, bladder, bowel or other surgery. Your doctor will provide you with a permanent care to carry describing this precaution. IMPORTANT: * REMEMBER TO TAKE ASPIRIN, 81 MG, TWICE DAILY FOR 4 WEEKS UNLESS OTHERWISE DIRECTED. THIS IS YOUR BLOOD THINNER. * HIGH RISK PATIENTS MAY BE PRESCRIBED A STRONGER BLOOD THINNER. THIS WILL BE PROVIDED AT DISCHARGE. * CALL IF INCREASED PAIN, REDNESS, DRAINAGE OR FEVER GREATER THAT 101. * WEAR JOSEF HOSE 20 HOURS PER DAY FOR 2 WEEKS. Zip Skin Closure You will be given instructions by nursing staff at the time of discharge to care for your Zip Closure System. This devices uses plastic straps to keep your incision closed and protected throughout your recovery. If you have any questions please refer to these instructions first. FOLLOW UP VISIT: If appointment is not already scheduled: Please call [facility] to make a follow-up appointment for 2 weeks after your surgery at . Current Hospital Diet Patient's current hospital diet: Diabetes Type 2 Diet Discharge Diet Recommended Diet: Diabetes Type 2 Diet Procedures Procedures Performed: Right Total Knee Arthroplasty Pending Studies Studies pending at discharge: no Medical Emergencies . Who to Call and When: Medical Emergencies: If at any time you feel your situation is an emergency, please call 911 immediately. . Non-Emergent Contact Non-Emergency issues call your: Primary Care Provider, Surgeon . "Provider Documentation" section prepared by Jorge Dsouza. . VTE Core Measure Inpt VTE Proph given/why not?: Other Anticoagulation (ASA 81mg po bid x 1 month ), T.E.D. Stockings, SCD's [place] Drug Monitoring Program Search Results: patient reviewed within database, no issues identified
[2017-08-02] MEDS ORDERED: RXC5 PO (07:54)
[2017-08-02] MEDS ORDERED: ULT50X PO (07:54)
[2017-08-02] MEDS ORDERED: ASPEC81 PO (07:54)
[2017-08-02] MEDS ORDERED: ONDA8TAB6 PO (07:54)
[2017-08-02] MEDS ORDERED: CLB200 PO (07:54)
[2017-08-02] MEDS ORDERED: ACET-24 PO (07:54)
[2017-08-02] MEDS ORDERED: CLC100 PO (07:54)
[2017-08-02] MEDS: ASPIRIN 81 MG ECTAB PO SCH ×2 (08:36→21:21)
[2017-08-02] MEDS: DOCUSATE SODIUM 100 MG CAP PO SCH ×2 (08:37→21:20)
[2017-08-02] MEDS: PANTOprazole SOD 40 MG TAB PO SCH (08:37)
[2017-08-02] MEDS: MULTIVITAMIN TAB PO SCH (08:37)
[2017-08-02] MEDS: FERROUS GLUCONATE 324 MG TAB PO SCH ×3 (08:37→17:20)
[2017-08-02] MEDS: OXYCODONE HCL 10 MG TABCR (OXYCONTIN) PO SCH ×2 (08:41→21:21)
[2017-08-02] MEDS: LISINOPRIL 5 MG TAB PO SCH (10:15)
[2017-08-02] MEDS: OXYCODONE HCL IR 5 MG TAB (IMMEDIATE RELEASE) PO PRN ×2 (12:02→17:20)
[2017-08-02 15:17] VITALS: BP 133/83; PULSE 61; TEMP 36.4; O2SAT 94
[2017-08-02] MEDS: CeleBREX 200 MG CAP PO SCH (21:21)
[2017-08-02] MEDS: SENNA 8.6 MG TAB PO SCH (21:21)
[2017-08-02 23:30] VITALS: BP 105/64; PULSE 68; TEMP 36.8; O2SAT 95
[2017-08-03] MEDS: OXYCODONE HCL IR 5 MG TAB (IMMEDIATE RELEASE) PO PRN ×2 (02:44→07:33)
[2017-08-03] MEDS: ACETAMINOPHEN 500 MG TAB PO SCH (06:06)
--- NOTE | 2017-08-03 07:10 | Orthopedic Progress Note ---
Orthopedic Progress Note Date of Service Aug 03, 2017. Subjective Post OP Day: 2 Reports: feeling well, pain controlled w PO medications, Denies: complaints, chest pain, SOB, nausea / vomiting, light headedness, calf pain Objective calves soft nontender, N/V intact, capillary refill less than 2 sec., incision C /D/I, A&O x3, toes mobile Date Time Temp Pulse Resp B/P (MAP) Pulse Ox O2 Delivery O2 Flow Rate FiO2 08/02/17 23:35 Room Air 08/02/17 23:30 36.8 68 16 105/64 (78) 95 Room Air 08/02/17 15:35 Room Air 08/02/17 15:17 36.4 61 18 133/83 (100) 94 Room Air 08/02/17 07:30 Room Air 08/02/17 07:13 36.4 63 16 120/70 (87) 97 Room Air Assessment & Plan Assessment: POD #2 s/p Right total knee arthroplasty. -pt/ot -dvt proph with francisco javier/scd/asa -plan for d/c home with HHPT when stable, likely after PT today -zipline skin closure Discharge Planning Discharge Planning: home with home health DVT Prophylaxis: TEDs, SCDs, ASA Therapy: Physical Therapy
[2017-08-03] MEDS: OXYCODONE HCL 10 MG TABCR (OXYCONTIN) PO SCH (07:32)
[2017-08-03] MEDS: CeleBREX 200 MG CAP PO SCH (07:33)
[2017-08-03] MEDS: DOCUSATE SODIUM 100 MG CAP PO SCH (07:33)
[2017-08-03] MEDS: LISINOPRIL 5 MG TAB PO SCH (07:33)
[2017-08-03 07:34] VITALS: BP 118/75; PULSE 62; TEMP 36.8; O2SAT 96
[2017-08-03] MEDS: FERROUS GLUCONATE 324 MG TAB PO SCH (07:34)
[2017-08-03] MEDS: MULTIVITAMIN TAB PO SCH (07:34)
[2017-08-03] MEDS: ASPIRIN 81 MG ECTAB PO SCH (07:34)
[2017-08-03] MEDS: PANTOprazole SOD 40 MG TAB PO SCH (07:34)
[2017-08-03 07:37] VITALS: BP 118/75; PULSE 62; TEMP 36.8; O2SAT 96
== END 2017-08-03 10:00 | disposition home health service (06) | DRG 470 ==
LOC: C.ACU 08:20 → C.3E 12:41 → ENRESERV 14:01
PROC: 0SRC0J9 Replacement of Right Knee Joint with Synthetic Substitute, Cemented, Open Approach (ICD-10-PCS; principal; 2017-08-01 11:00)
DX: M17.11 Unilateral primary osteoarthritis, right knee (principal); I10 Essential (primary) hypertension; E66.9 Obesity, unspecified; Z96.652 Presence of left artificial knee joint; Z68.33 Body mass index [BMI] 33.0-33.9, adult